=== PATIENT | female | born 1960 | race Caucasian/White ===

== ENCOUNTER → 2017-04-19 | Outpatient (CLI) | payer MEDICARE ==
[2017-03-13 11:00] VITALS: BP 147/54
[~2017-04-19] MED LIST: ACET325T9 PO; AMMO226L TP; ASPI-482 PO; ATOR40TA59 PO; CARV12.52 PO; GABA-586 PO; HYDR-2758 PO; INSU100I13 SQ; LIDO30CR TP; LISI10TA2 PO; LORA0.5T PO; MAG355OR11 PO; MULT1TAB52 PO; NITR0.4T SL; NYST15PO9 TP; ONDA4TAB10 SL; OXYC15TA60 PO; SERT50TA PO; [UNRECOGNIZED DRUG - CODE] TP
== END | disposition home or self-care (01) ==
LOC: PMGWOUND 10:12
PROVIDERS: ATTEND Emergency Medicine Undersea and Hyperbaric Medicine
DX: E11.621 Type 2 diabetes mellitus with foot ulcer (principal); L97.421 Non-pressure chronic ulcer of left heel and midfoot limited to breakdown of skin; L89.323 Pressure ulcer of left buttock, stage 3; L89.153 Pressure ulcer of sacral region, stage 3; L89.133 Pressure ulcer of right lower back, stage 3; L03.115 Cellulitis of right lower limb; E78.5 Hyperlipidemia, unspecified; F41.9 Anxiety disorder, unspecified; E11.22 Type 2 diabetes mellitus with diabetic chronic kidney disease; I13.0 Hypertensive heart and chronic kidney disease with heart failure and stage 1 through stage 4 chronic kidney disease, or unspecified chronic kidney disease; N18.4 Chronic kidney disease, stage 4 (severe); I50.9 Heart failure, unspecified; F32.9 Major depressive disorder, single episode, unspecified; K21.9 Gastro-esophageal reflux disease without esophagitis; E66.01 Morbid (severe) obesity due to excess calories; E11.40 Type 2 diabetes mellitus with diabetic neuropathy, unspecified; Z68.43 Body mass index [BMI] 50.0-59.9, adult
CPT/HCPCS: 99214